=== PATIENT | male | born 1955 ===

== ENCOUNTER 2017-01-18 08:19 | Emergency (ER) | payer MEDICAID, OTHER ==
[2017-01-18] MEDS ORDERED: Lidocaine 5% Patch TD STA (09:01)
[2017-01-18] MEDS ORDERED: Lidocaine 5% Patch TD ONE (09:12)
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
[2017-01-18 10:05] VITALS: BP 119/83; PULSE 69; RESP 18; TEMP 98.2; O2SAT 96
--- NOTE | 2017-01-18 12:03 | RAD ---
PROCEDURE: Radiographs of the Lumbar Spine. HISTORY: pain for weeks COMPARISON: No prior. FINDINGS: BONES: A mild dextroscoliotic deformity is appreciated. Normal lordotic curvature. No fracture or spondylolisthesis is identified. DISC SPACES: Advanced multilevel lumbar spondylosis appreciated diffusely with significant disc height loss identified L4-5 and L5-S1. Similar change identified in the visualized inferior thoracic spine including a probable compression fracture of T11 which is of indeterminate age. OTHER FINDINGS: None. IMPRESSION: Multilevel degenerate spondylosis without lumbar fracture or spondylolisthesis identified. Further characterization can be provided by MRI if clinically warranted. Incidental compression fracture of T11 which appears mild and is of indeterminate age.
== END 2017-01-18 10:05 | disposition home or self-care (01) ==
LOC: C.ER 08:19
DX: M54.5 Low back pain (principal)
CPT/HCPCS: 72100; 96372; 99284; J1885

== ENCOUNTER 2017-07-02 13:54 | Emergency (ER) | payer MEDICAID, OTHER ==
[2017-07-02 14:45] VITALS: BP 134/89; PULSE 64; RESP 18; TEMP 98.6; O2SAT 97
--- NOTE | 2017-07-02 17:03 | CT ---
PROCEDURE: CT Lumbar Spine without contrast HISTORY: Persistent low back pain s/p injury 8 months ago. COMPARISON: None. TECHNIQUE: Axial computed tomography images were obtained of the lumbar spine without the use of intravenous contrast. Coronal and sagittal reformatted images were created and reviewed. Radiation dose: Total exam DLP = 491.83 mGy-cm. This CT exam was performed using one or more of the following dose reduction techniques: Automated exposure control, adjustment of the mA and/or kV according to patient size, and/or use of iterative reconstruction technique. FINDINGS: VERTEBRAE: The vertebral bodies are maintained in height. The transverse processes and posterior elements are intact. DISCS/SPINAL CANAL/NEURAL FORAMINA: L1-2: Disc space maintained in height. No disc bulge or herniation. No spinal or neural foraminal stenosis. L2-3: Mild narrowing of the intervertebral disc space. Mild diffuse disc bulge. No focal herniation. Bilateral degenerative facet arthropathy. [id number] bilateral neural foraminal stenosis. No central spinal stenosis. L3-4: Loss in height of the intervertebral disc space. Mild disc bulge. No focal disc herniation. Bilateral degenerative facet arthropathy. Moderate bilateral neural foraminal stenosis. No central spinal stenosis. L4-5: Loss in height of the intervertebral disc space. Very small central disc herniation. This is superimposed upon mild disc bulge. Bilateral degenerative facet arthropathy. Moderate to severe bilateral neural foraminal stenosis. No central spinal stenosis. L5-S1: Intervertebral disc space maintained in height. Mild disc bulge. No focal herniation. No spinal or neural foraminal stenosis PARASPINAL SOFT TISSUES: Unremarkable. OTHER FINDINGS: None. IMPRESSION: Multilevel degenerative disc disease with multilevel bilateral neural foraminal stenosis as detailed above. No central spinal stenosis. Multilevel degenerative facet arthropathy. No fracture/dislocation.
--- NOTE | 2017-07-02 17:20 | C.PDOC ---
History Of Present Illness Pt c/o low back pain s/p Job injury in October of 2016. Time Seen by Provider: 07/02/17 15:07 Chief Complaint (Nursing): Back Pain History Per: Patient Onset/Duration Of Symptoms: Days (about 8 months) Current Symptoms Are (Timing): Still Present Quality Of Discomfort: "Pain" Severity: Moderate Previous Symptoms: Back Pain, Prior Injury Associated Symptoms: None Exacerbating Factor(s): Movement Additional History Per: Prior Records Past Medical History Reviewed: Historical Data, Nursing Documentation, Vital Signs Vital Signs: Last Vital Signs Temp 98.6 F 07/02/17 14:44 Pulse 64 07/02/17 14:44 Resp 18 07/02/17 14:44 BP 134/89 07/02/17 14:44 Pulse Ox 97 07/02/17 14:44 - Medical History PMH: Back Problems, Diabetes, HTN Surgical History: Hernia Repair Family History: States: Diabetes - Social History Hx Tobacco Use: No Hx Alcohol Use: No Hx Substance Use: No - Immunization History Hx Tetanus Toxoid Vaccination: No Hx Influenza Vaccination: No Hx Pneumococcal Vaccination: No Review Of Systems Except As Marked, All Systems Reviewed And Found Negative. Constitutional: Negative for: Fever, Weakness Cardiovascular: Negative for: Chest Pain Respiratory: Negative for: Shortness of Breath Gastrointestinal: Negative for: Vomiting, Abdominal Pain Genitourinary: Negative for: Dysuria, Incontinence, Hematuria Musculoskeletal: Positive for: Back Pain Skin: Negative for: Rash Neurological: Negative for: Weakness, Numbness Physical Exam - Physical Exam Appears: Non-toxic, No Acute Distress Skin: Normal Color, Warm, Dry, No Rash Head: Atraumatic, Normacephalic Eye(s): bilateral: Normal Inspection, PERRL, EOMI Neck: Normal ROM, Supple Cardiovascular: Rhythm Regular Respiratory: Normal Breath Sounds, No Accessory Muscle Use Gastrointestinal/Abdominal: Soft, No Tenderness Back: No CVA Tenderness, Vertebral Tenderness (lumbar) Extremity: Normal ROM Neurological/Psych: Oriented x3, Normal Motor, Normal Sensation ED Course And Treatment O2 Sat by Pulse Oximetry: 97 Pulse Ox Interpretation: Normal - CT Scan/US CT Lumbar spine Other Rad Studies (CT/US): Read By Radiologist, Radiology Report Reviewed CT/US Interpretation: IMPRESSION: Multilevel degenerative disc disease with multilevel bilateral neural foraminal stenosis as detailed above. No central spinal stenosis. Multilevel degenerative facet arthropathy. No fracture/ dislocation. Disposition Counseled Patient/Family Regarding: Studies Performed, Diagnosis, Need For Followup, Rx Given - Disposition Referrals: [facility] [Provider Group] [facility] [Provider Group] [facility] [Provider Group] Disposition: HOME/ ROUTINE Disposition Time: 17:21 Condition: IMPROVED Additional Instructions: Follow up with a water rights specialist for further evaluation and treatment. Return to the ER if you develop weakness, numbness, trouble urinating, abdominal pain, worsening of symptoms or if you have any other concerns. Prescriptions: traMADol/Acetaminophen [Ultracet 325 MG-37.5 MG] 1 tab PO Q4 PRN #30 tab PRN Reason: Pain Instructions: Back Pain (ED) Forms: [employer] (Wolof) Print Language: KOREAN - Clinical Impression Clinical Impression: Degenerative joint disease (DJD) of lumbar spine, Low back pain
== END 2017-07-02 17:35 | disposition home or self-care (01) ==
LOC: C.ER 13:54
DX: M47.896 Other spondylosis, lumbar region (principal); M54.5 Low back pain

== ENCOUNTER 2017-08-19 09:45 | Emergency (ER) | payer OTHER ==
[2017-08-19 09:50] VITALS: BP 157/92; PULSE 70; RESP 20; TEMP 98; O2SAT 96
--- NOTE | 2017-08-19 11:37 | C.PDOC ---
History Of Present Illness 62 y/o male presents to the ED with 2 day history of lower back pain. Patient reports history of chronic back pain. 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 Denies any fever, chills, rash, dysuria, incontinence or bowel/bladder, saddle distribution anesthesia, or lower extremity weakness. Pain is localized to the lower back. Time Seen by Provider: 08/19/17 09:59 Chief Complaint (Nursing): Back Pain History Per: Patient History/Exam Limitations: no limitations Onset/Duration Of Symptoms: Days (x2) Current Symptoms Are (Timing): Still Present Previous Symptoms: Back Pain Associated Symptoms: None Past Medical History Reviewed: Historical Data, Nursing Documentation, Vital Signs Vital Signs: Last Vital Signs Temp 98 F 08/19/17 09:50 Pulse 70 08/19/17 09:50 Resp 20 08/19/17 09:50 BP 157/92 H 08/19/17 09:50 Pulse Ox 96 08/19/17 11:50 - Medical History PMH: Back Problems, Diabetes, HTN Surgical History: Hernia Repair Family History: States: Diabetes - Social History Hx Tobacco Use: No Hx Alcohol Use: Yes Hx Substance Use: No - Immunization History Hx Tetanus Toxoid Vaccination: No Hx Influenza Vaccination: No Hx Pneumococcal Vaccination: No Review Of Systems Except As Marked, All Systems Reviewed And Found Negative. Musculoskeletal: Positive for: Back Pain Physical Exam - Physical Exam Appears: Non-toxic, No Acute Distress Skin: Normal Color, Warm, Dry Head: Atraumatic, Normacephalic Eye(s): bilateral: Normal Inspection, PERRL, EOMI Nose: Normal Oral Mucosa: Moist Neck: Normal ROM, Supple Chest: Symmetrical Cardiovascular: Rhythm Regular Respiratory: Normal Breath Sounds, No Accessory Muscle Use, No Other ( respiratory distress) Back: No Vertebral Tenderness, Muscle Spasm, Paraspinal Tenderness, No Straight Leg Raising, Other (Neurovascularly intact, no cellulitic component) Extremity: Bilateral: Atraumatic, No Pedal Edema, Normal Color And Temperature Neurological/Psych: Oriented x3, Normal Speech, Normal Motor, Normal Sensation, No Other (focal deficits) ED Course And Treatment O2 Sat by Pulse Oximetry: 96 (RA) Pulse Ox Interpretation: Normal - Other Rad coccyx/sacral x-ray X-Ray: Viewed By Me, Read By Radiologist Interpretation: FINDINGS: BONES: Bone alignment and mineralization are normal. There is no acute displaced fracture or bone destruction. The sacrococcygeal angulation is normal. SACROILIAC JOINTS: Both sacroiliac joints are normal. The hip joint spaces are preserved. OTHER FINDINGS: None. IMPRESSION: Normal examination. lumbar spine x-ray X-Ray: Viewed By Me, Read By Radiologist Medical Decision Making Medical Decision Making: Impression: Back pain Time: 10:35 Initial Plan: --Toradol 60 mg IM --Flexeril 10 mg PO --Tramadol 50 mg PO --X-ray sacrum/coccyx --X-ray LS spine --Reevaluation 11:45 On reevaluation, patient reports improvement. Stable for discharge home. Preliminary reading of x-rays demonstrate no fracture or dislocation. Advised to follow up with the clinic in 2 days. Disposition Counseled Patient/Family Regarding: Studies Performed, Diagnosis, Need For Followup, Rx Given - Disposition Referrals: [facility] [Outside] [facility] [Outside] Disposition: HOME/ ROUTINE Disposition Time: 11:45 Condition: IMPROVED Additional Instructions: follow up with your doctor or medical clinic in 2 days call to make an appointment take medications as prescribed return to ER if symptoms worsens or progress Prescriptions: Cyclobenzaprine [Cyclobenzaprine HCl] 10 mg PO TID PRN #12 tab PRN Reason: Muscle Spasm Naproxen [Naprosyn] 500 mg PO BID PRN #16 tab PRN Reason: Pain, Moderate (4-7) traMADol [Ultram] 50 mg PO TID PRN #12 tab PRN Reason: Pain, Moderate (4-7) Instructions: Low Back Pain (DC) Forms: Gen Discharge Inst Slovak, [facility] (Slovak), Work Excuse - POA Present On Arrival: None - Clinical Impression Clinical Impression: Low back pain - Scribe Statement The provider has reviewed the documentation as recorded by the Scribe (Samira Rivera) Provider Attestation: All medical record entries made by the Scribe were at my direction and personally dictated by me. I have reviewed the chart and agree that the record accurately reflects my personal performance of the history, physical exam, medical decision making, and the department course for this patient. I have also personally directed, reviewed, and agree with the discharge instructions and disposition.
--- NOTE | 2017-08-19 11:56 | RAD ---
PROCEDURE: Radiographs of the Sacrum and Coccyx HISTORY: back pain COMPARISON: None available. TECHNIQUE: Frontal and lateral views of the sacrum and coccyx FINDINGS: BONES: Bone alignment and mineralization are normal. There is no acute displaced fracture or bone destruction. The sacrococcygeal angulation is normal. SACROILIAC JOINTS: Both sacroiliac joints are normal. The hip joint spaces are preserved. OTHER FINDINGS: None. IMPRESSION: Normal examination.
--- NOTE | 2017-08-20 09:08 | RAD ---
PROCEDURE: Radiographs of the Lumbar Spine. HISTORY: back pain COMPARISON: No prior. FINDINGS: BONES: Dextro convex curvature centered at L3. Anterior endplate osteophytic changes. No listhesis. No fracture. DISC SPACES: Multilevel narrowing. OTHER FINDINGS: None. IMPRESSION: No acute fracture. Multilevel degenerative changes.
== END 2017-08-19 11:52 | disposition home or self-care (01) ==
LOC: C.ER 09:45
DX: M54.5 Low back pain (principal)
CPT/HCPCS: 72100; 72220; 82948; 96372; 99284; J1885

== ENCOUNTER 2018-03-09 13:51 | Emergency (ER) | payer OTHER ==
[2018-03-09 14:24] VITALS: BP 143/90; PULSE 80; RESP 20; TEMP 98.3; O2SAT 99
--- NOTE | 2018-03-09 14:38 | C.PDOC ---
History Of Present Illness 62 year old male presents to the ED for evaluation of chronic neck and lower back pain for 1 month. Patient states he has had previous similar symptoms. Notes he was seen by a specialist, prescribed Diclofenac, ran out of the medication, and did not get a refill because the medication was too expensive. Denies trauma, injury, and any other associated symptoms. Time Seen by Provider: 03/09/18 14:17 Chief Complaint (Nursing): Back Pain History Per: Patient History/Exam Limitations: no limitations Onset/Duration Of Symptoms: Days Current Symptoms Are (Timing): Still Present Past Medical History Reviewed: Historical Data, Nursing Documentation, Vital Signs Vital Signs: Last Vital Signs Temp 98.3 F 03/09/18 14:19 Pulse 80 03/09/18 14:19 Resp 20 03/09/18 14:19 BP 143/90 03/09/18 14:19 Pulse Ox 99 03/09/18 14:19 - Medical History PMH: Back Problems, Diabetes, HTN Surgical History: Hernia Repair Family History: States: Diabetes - Social History Hx Tobacco Use: No Hx Alcohol Use: Yes Hx Substance Use: No - Immunization History Hx Tetanus Toxoid Vaccination: No Hx Influenza Vaccination: No Hx Pneumococcal Vaccination: No Review Of Systems Constitutional: Negative for: Other ((-) trauma. (-) injury. ) Musculoskeletal: Positive for: Neck Pain, Back Pain (lower ) Physical Exam - Physical Exam Appears: Other (mild pain.) Skin: Normal Color, Warm, Dry Head: Atraumatic, Normacephalic Neck: Normal ROM, No Midline Cervical Tenderness, Paracervical Tenderness, Supple Cardiovascular: Rhythm Regular, No Murmur Respiratory: Normal Breath Sounds, No Rales, No Rhonchi, No Wheezing Back: Paraspinal Tenderness Neurological/Psych: Oriented x3, Normal Speech Gait: Steady ED Course And Treatment O2 Sat by Pulse Oximetry: 99 (RA) Pulse Ox Interpretation: Normal Progress Note: Given Cyclobenzapine and Toradol. Patient felt better after the medications. Patient stable for discharge home. Prescribed Cyclobenzaprine and Ibuprofen. Disposition Counseled Patient/Family Regarding: Diagnosis, Need For Followup, Rx Given - Disposition Referrals: Magdi Schmid MD [Medical Doctor] - [facility] [Outside] Disposition: HOME/ ROUTINE Disposition Time: 15:00 Condition: STABLE Additional Instructions: FOLLOW UP WITH YOUR DOCTOR OR MEDICAL CLINIC IN 1-2 DAYS USE MEDICATIONS NEEDED RETURN TO EMERGENCY ROOM IF SYMPTOMS WORSEN SEGUIR CON OCHOA MDICO O LA CLNICA MDICA EN 1-2 ORELLANA UTILICE MEDICAMENTOS CINDY SE NECESITE VUELVA A LA ADINA DE EMERGENCIA SI LOS SNTOMAS SE HACEN PEOR Prescriptions: Cyclobenzaprine [Flexeril] 10 mg PO BID PRN #15 tab PRN Reason: Muscle Spasm Ibuprofen [Motrin Tab] 600 mg PO Q6 PRN #30 tab PRN Reason: fever/pain Instructions: Low Back Pain (DC), Chronic Neck Pain (DC) Forms: [employer] (Cuban) Print Language: YI - POA Present On Arrival: None - Clinical Impression Clinical Impression: Low back pain, Chronic neck pain - Scribe Statement The provider has reviewed the documentation as recorded by the Scribe (Jessica Plasencia) Provider Attestation: All medical record entries made by the Scribe were at my direction and personally dictated by me. I have reviewed the chart and agree that the record accurately reflects my personal performance of the history, physical exam, medical decision making, and the department course for this patient. I have also personally directed, reviewed, and agree with the discharge instructions and disposition.
== END 2018-03-09 15:23 | disposition home or self-care (01) ==
LOC: C.ER 13:51
DX: M54.5 Low back pain (principal); G89.29 Other chronic pain; M54.2 Cervicalgia; E11.9 Type 2 diabetes mellitus without complications; I10 Essential (primary) hypertension
CPT/HCPCS: 96372; 99283; J1885